=== PATIENT | male | born 1995 | race Two or more races ===

== ENCOUNTER 2019-11-07 18:35 | Emergency (ER) | payer OTHER ==
--- NOTE | 2019-11-07 18:43 | PDOC ---
Rapid Medical Evaluation Time Seen by Provider: 11/07/19 18:37 Medical Evaluation: 11/07/19 18:37 HPI: 24 year old male no pmhx presenting with nasal congestion chills with loss of taste of smell PE: tachycardia CTA A/P: tachcardia to 140's O2 sat 100 Basic labs Fluids Chest XR EKG Pt to precede to ED for further evaluation and treatment.
[2019-11-07] MEDS ORDERED: ACETAMINOPHEN 500 MG TABLET (FP) PO ONE (18:44)
[2019-11-07] MEDS ORDERED: SODIUM CHLORIDE 0.9% 500 ML INFUS.BAG IV ONE (18:44)
[2019-11-07 19:07] VITALS: TEMP 99.4; BMI 27.5
--- NOTE | 2019-11-07 20:00 | PDOC ---
History of Present Illness - General Chief Complaint: Cold Symptoms Stated Complaint: COUGH/CONGESTION Time Seen by Provider: 11/07/19 18:37 History Source: Patient Exam Limitations: No Limitations - History of Present Illness Initial Comments: 11/07/19 20:00 24y previously healthy M presenting w 1d nasal congestion, SOB, non productive cough. Took tylenol this morning w/o relief. Denies recent covid exposure. Denies fever, n/v, chest, ABD pain, urinary/bowel mvmt changes. Past History - Medical History Allergies/Adverse Reactions: Allergies Allergy/AdvReac Type Severity Reaction Status Date / Time No Known Allergies Allergy Verified 11/07/19 18:39 COPD: No - Immunization History Immunization Up to Date: No - Psycho-Social/Smoking History Smoking History: Former smoker Have you smoked in the past 12 months: No Information on smoking cessation initiated: No - Substance Abuse Hx (Audit-C & DAST Scrn) How often the patient has a drink containing alcohol: Never Score: In Men: 4 or > Positive; In Women: 3 or > Positive: 0 Screen Result (Pos requires Nsg. Audit-10AR): Negative In the last yr the pt used illegal drug/Rx for NonMed reason: No Score: Yes response is considered Positive: 0 Screen Result (Positive result requires Nsg. DAST-10): Negative Review of Systems - Review of Systems Constitutional: No: Chills, Fever HEENTM: Yes: Nose Congestion. No: Eye Pain Respiratory: Yes: Cough, Shortness of Breath Cardiac (ROS): No: Chest Pain, Palpitations ABD/GI: No: Constipated, Diarrhea, Nausea, Vomiting : No: Burning, Dysuria Musculoskeletal: No: Back Pain, Joint Pain Integumentary: No: Bruising, Flushing Neurological: No: Headache, Seizure Psychiatric: No: Anxiety, Depression Endocrine: No: Intolerance to Cold, Intolerance to Heat Hematologic/Lymphatic: No: Anemia, Blood Clots *Physical Exam - Vital Signs Last Vital Signs Temp Pulse Resp BP Pulse Ox 99.4 F 140 H 20 159/110 H 100 11/07/19 18:40 11/07/19 18:40 11/07/19 18:40 11/07/19 18:40 11/07/19 18:40 - Physical Exam General Appearance: Yes: Nourished, Appropriately Dressed, Mild Distress HEENT: positive: EOMI, SHOAIB, Normal Voice, Nasal Congestion, Hearing Grossly Normal. negative: Scleral Icterus (R), Scleral Icterus (L) Respiratory/Chest: positive: Lungs Clear, Normal Breath Sounds. negative: Chest Tender, Respiratory Distress Cardiovascular: positive: Regular Rhythm, S1, S2, Tachycardia. negative: Murmur Gastrointestinal/Abdominal: positive: Normal Bowel Sounds, Flat, Soft. negative: Tender, Organomegaly Extremity: positive: Delayed Capillary Refill Integumentary: positive: Normal Color, Dry, Warm Neurologic: positive: Fully Oriented, Alert, Normal Mood/Affect, Normal Response, Responsive ED Treatment Course - LABORATORY CBC & Chemistry Diagram: 11/07/19 21:30 11/07/19 21:30 Medical Decision Making - Medical Decision Making 11/07/19 20:24 EKG - sinus tachycardia, HR 113, QTc 441, no ST changes CXR - fiona fluffy hilar infiltrates --- 24y previously healthy M presenting w 1d nasal congestion, SOB, non productive cough. Tachycardic 140 on admission Likely covid (infiltrates XR) vs PE vs hyperthyroid Given 1L NS, tylenol, sudafed Anticipate DC home Signed out to night team - consider d-dimer if pt persistently tachycardic after fluids given Discharge - Discharge Information Problems reviewed: Yes Clinical Impression/Diagnosis: Suspected 2019 novel coronavirus infection Condition: Improved Disposition: HOME - Follow up/Referral - Patient Discharge Instructions Patient Printed Discharge Instructions: [facility]-Coronavirus Instructions, [facility]- [facility] COVID-19 Isolation Protocol Additional Instructions: You may have the coronavirus infection Please self quarantine for the next 14 days You will be contacted with the results of your covid test in the next few days Drink lots of water Come back to the ED if you cannot breathe, persistent diarrhea, or severe chest pain --- Puede tener la infeccin por coronavirus Pngase en cuarentena john los prximos 14 heck Ser contactado con los resultados de de león prueba de covid en los prximos heck [place] Regrese al servicio de urgencias si no puede respirar, si tiene diarrea persistente o dolor de pecho intenso - Post Discharge Activity
[2019-11-07] MEDS ORDERED: PSEUDOEPHEDRINE HCL 30 MG TABLET PO ONE (20:21)
[2019-11-07] MEDS ORDERED: ACETAMINOPHEN 325 MG TABLET (FP) ONE (20:42)
[2019-11-07] MEDS ORDERED: PSEUDOEPHEDRINE HCL 60 MG TABLET ONE (20:43)
--- NOTE | 2019-11-07 20:44 | PDOC ---
Documentation entered by Kimberly Mares SCRIBE, acting as scribe for Emily De MD. Emily De MD: This documentation has been prepared by the Suzan márquez Xhesika, SCRIBE, under my direction and personally reviewed by me in its entirety. I confirm that the documentation accurately reflects all work, treatment, procedures, and medical decision making performed by me. Attending Attestation - Resident Resident Name: Justin Blankenship - ED Attending Attestation I have performed the following: I have examined & evaluated the patient, The case was reviewed & discussed with the resident, I agree w/resident's findings & plan, Exceptions are as noted - HPI HPI: 11/07/19 20:03 The patient is a 23y/o M with no pmh who presents to the ED with nasal congestion, nonproductive cough, and SOB x1day. Pt states he took Tylenol this morning with no improvement of symptoms. Pt denies any recent COVID exposures. The patient denies chest pain, headache and dizziness. Denies fever, nausea, vomiting, diarrhea and constipation. Denies dysuria, frequency, urgency and hematuria. Allergies: NKDA - Physicial Exam PE: 11/07/19 20:30 GENERAL: tired but nontoxic-appearing young adult male, A/Ox4, no distress, answers questions appropriately HEENT: PERRLA, EOMI, a bit dry mucous membranes NECK/BACK: no midline ttp, no spinal step-off or deformity, no hematoma, full ROM, neck supple CARDIOVASCULAR: apid regular rate, no MGR, strong peripheral pulses, capillary refill <2 seconds, extremities wwp, no edema LUNGS/RESPIRATORY: no respiratory distress, CTAB GI/ABDOMEN: symmetric [id number], normoactive BS, soft, no ttp, no midline pulsatile masses : no CVA tenderness MSK/EXTREMITIES: no muscle atrophy, no acute deformity SKIN: warm and dry, no pallor, no jaundice, no rash, no pathologic-appearing bruising, no skin breakdown, no cuts, no lesions NEUROLOGICAL: GCS 15, CN II-XII grossly intact, 5/5 strength proximally and distally, no facial droop - Medical Decision Making 11/07/19 20:31 Patient presents with fever, SOB, cough, c/f COVID-19 in the setting of COVID-19 pandemic. Initial Vital Signs Temp Pulse Resp BP Pulse Ox 99.4 F 140 H 20 159/110 H 100 11/07/19 18:40 11/07/19 18:40 11/07/19 18:40 11/07/19 18:40 11/07/19 18:40 DDX IBNLT: likely COVID-19 with c/f sequelae (ARDS, myocarditis). Superimposed bacterial PNA considered as well. Less likely influenza, bronchitis, other viral URI, laryngitis, tracheitis, etc. Initially patient is tachycardic and with mildly elevated oral temp, no desaturations, so unlikely PE but will check rectal temp and fluid resuscitate and give Tylenol and re-assess VS. Provider Orders Category Date Time Status ELECTROCARDIOGRAM [CARD] Stat Cardiology 11/07/19 18:43 Ordered EKG needed NOW Care 11/07/19 18:44 Completed Isolation Precautions As directed Care 11/07/19 18:44 Active CBC WITH DIFFERENTIAL Stat Lab 11/07/19 21:30 Completed COMP METABOLIC PANEL Stat Lab 11/07/19 21:30 Completed COVID-19 Stat Lab 11/07/19 21:30 Received PT/INR (PROTHROMBIN TIME) Stat Lab 11/07/19 21:30 Completed THYROID STIMULATING HORMONE Stat Lab 11/07/19 21:30 Completed Acetaminophen [Tylenol -] Medication 11/07/19 20:42 Discontinued 975 mg .ROUTE .STK-MED ONE Acetaminophen [Tylenol -] Medication 11/07/19 18:44 Discontinued 975 mg PO ONCE ONE Pseudoephedrine HCl [Sudafed -] Medication 11/07/19 20:21 Discontinued 30 mg PO ONCE ONE Pseudoephedrine HCl [Sudafed -] Medication 11/07/19 20:43 Discontinued 60 mg .ROUTE .STK-MED ONE Sodium Chloride [Normal Saline -] Medication 11/07/19 18:44 Discontinued 1,000 ml IV ONCE ONE Sodium Chloride [Normal Saline -] 1,000 ml Medication 11/07/19 22:30 Discontinued IV ASDIR IV Insert NOW Phy Order 11/07/19 18:44 Active CHEST X-RAY PORTABLE* [RAD] Stat Radiology 11/07/19 20:00 Taken Medications Discontinued Medications Generic Name Dose Route Start Last Admin Trade Name Freq PRN Reason Stop Dose Admin Acetaminophen 975 mg 11/07/19 18:44 11/07/19 20:30 Tylenol - PO 11/07/19 18:45 975 mg ONCE ONE Administration Acetaminophen Confirm 11/07/19 20:42 Tylenol - Administered 11/07/19 20:43 Dose 975 mg .ROUTE .STK-MED ONE Sodium Chloride 1,000 mls @ 1,000 mls/hr 11/07/19 22:30 11/07/19 23:27 Normal Saline - IV 11/07/19 23:29 1,000 mls/hr ASDIR STA Administration Pseudoephedrine HCl 30 mg 11/07/19 20:21 11/07/19 20:45 Sudafed - PO 11/07/19 20:22 30 mg ONCE ONE Administration Pseudoephedrine HCl Confirm 11/07/19 20:43 Sudafed - Administered 11/07/19 20:44 Dose 60 mg .ROUTE .STK-MED ONE Sodium Chloride 1,000 ml 11/07/19 18:44 11/07/19 20:30 Normal Saline - IV 11/07/19 18:45 1,000 ml ONCE ONE Administration Lab Results WBC 6.6 K/mm3 (4.0-10.0) 11/07/19 21:30 RBC 6.84 M/mm3 (4.00-5.60) H 11/07/19 21:30 Hgb 17.5 GM/dL (11.7-16.9) H 11/07/19 21:30 Hct 54.2 % (35.4-49) H 11/07/19 21:30 MCV 79.3 fl (80-96) L 11/07/19 21:30 MCH 25.6 pg (25.7-33.7) L 11/07/19 21:30 MCHC 32.3 g/dl (32.0-35.9) 11/07/19 21:30 RDW 13.6 % (11.9-15.9) 11/07/19 21:30 Plt Count 277 K/MM3 (134-434) 11/07/19 21:30 MPV 9.7 fl (7.5-11.1) 11/07/19 21:30 Absolute Neuts (auto) 4.3 K/mm3 (1.5-8.0) 11/07/19 21:30 Neutrophils % 65.4 % (42.8-82.8) 11/07/19 21: Lymphocytes % 18.4 % (8-40) 11/07/19: Monocytes % 14.3 % (3.8-10.2) H 11/07/19 21: Eosinophils % 1.4 % (0-4.5) 11/07/19: Basophils % 0.5 % (0-2.0) 11/07/19: Nucleated RBC % 0 % (0-0) 11/07/19: Platelet Estimate Normal 11/07/19: Platelet Comment Present 11/07/19: PT with INR 13.60 SEC (9.7-13.0) H 11/07/19: INR 1.15 (0.83-1.09) H 11/07/19 21:30 Sodium 140 mmol/L (136-145) 11/07/19: Potassium 3.7 mmol/L (3.5-5.1) 11/07/19: Chloride 104 mmol/L (98-107) 11/07/19: Carbon Dioxide 25 mmol/L (21-32) 11/07/19:30 Anion Gap 10 MMOL/L (8-16) 11/07/19: BUN 12.3 mg/dL (7-18) 11/07/19 21: Creatinine 1.2 mg/dL (0.55-1.3) 11/07/19:30 Est GFR (CKD-EPI)AfAm 98.89 11/07/19: Est GFR (CKD-EPI)NonAf 85.32 11/07/19 21:30 Random Glucose 118 mg/dL (74-106) H 11/07/19 21:30 Calcium 9.4 mg/dL (8.5-10.1) 11/07/19 21:30 Total Bilirubin 0.4 mg/dL (0.2-1) 11/07/19 21:30 AST 23 U/L (15-37) 11/07/19 21:30 ALT 31 U/L (13-61) 11/07/19: Alkaline Phosphatase 88 U/L (45-117) 08/25/20 21:30 Total Protein 8.5 g/dl (6.4-8.2) H 11/07/19 21:30 Albumin 4.3 g/dl (3.4-5.0) 11/07/19 21:30 TSH 1.11 uIU/ml (0.358-3.74) 11/07/19 21:30 CXR: Diffuse bilateral patchy consolidations without focal or lobar consolidation. 11/07/19 21:01 At this time patient's HR is 100. 11/08/19 00:10 Patient's repeat HR after 2nd liter IVF is 104. He states he is anxious and does not like hospitals. No SOB, no chest pain This Pt has gotten significant relief of symptoms while in the ED. The patient has no new hypoxia, significant respiratory distress, or other sxs requiring admission. On last reassessment, vitals are wnl and exam is benign. Workup is not concerning for emergency-level pathology at this time. This Pt is appropriate for discharge with close outpatient follow up. They are comfortable with this plan and will call PCP within 2 days for follow-up conversation. They are instructed on importance of quarantine and further outpatient testing. Discharge instructions for COVID-19 patients and household members given. Specific return precautions are discussed and they will come back to the ER if necessary. Heart Score/ECG Review #1 11/07/19 20:34 Sinus tachycardia, rate 113, normal axis and intervals, no ischemic ST-T changes Discharge - Discharge Information Problems reviewed: Yes Clinical Impression/Diagnosis: Viral syndrome Condition: Improved Disposition: HOME - Admission No - Follow up/Referral - Patient Discharge Instructions Patient Printed Discharge Instructions: [facility]-Coronavirus Instructions, [facility]- [facility] COVID-19 Isolation Protocol Additional Instructions: You may have the coronavirus infection Please self quarantine for the next 14 days You will be contacted with the results of your covid test in the next few days Drink lots of water. Take tylenol 650mg every 6 hours as needed Come back to the ED if you cannot breathe, persistent diarrhea, or severe chest pain --- Puede tener la infeccin por coronavirus Pngase en cuarentena john los prximos 14 heck Ser contactado con los resultados de de león prueba de covid en los prximos heck [address] [place] tylenol. 650mg cada 6 horas si necesitas Regrese al servicio de urgencias si no puede respirar, si tiene diarrea persistente o dolor de pecho intenso Print Language: AMHARIC - Post Discharge Activity Work/Back to School Note: Back to Work
[2019-11-07 21:49] LABS: BASO % 0.5 % (0-2.0); EOS % 1.4 % (0-4.5); HEMATOCRIT 54.2 % (35.4-49); HEMOGLOBIN 17.5 GM/dL (11.7-16.9); LYMPH % 18.4 % (8-40); MCH 25.6 pg (25.7-33.7); MCHC 32.3 g/dl (32.0-35.9); MEAN CELL VOLUME 79.3 fl (80-96); MEAN PLT VOLUME 9.7 fl (7.5-11.1); MONO % 14.3 % (3.8-10.2); NEUT % 65.4 % (42.8-82.8); RBC 6.84 M/mm3 (4.00-5.60); RDW 13.6 % (11.9-15.9); WHITE BLOOD COUNT 6.6 K/mm3 (4.0-10.0)
[2019-11-07 21:56] LABS: INR 1.15 (0.83-1.09); PROTHROMBIN TIME (PATIENT) 13.6 SEC (9.7-13.0)
[2019-11-07 22:19] LABS: ALBUMIN 4.3 g/dl (3.4-5.0); BILIRUBIN,TOTAL 0.4 mg/dL (0.2-1); BLOOD UREA NITROGEN 12.3 mg/dL (7-18); CALCIUM 9.4 mg/dL (8.5-10.1); CREATININE 1.2 mg/dL (0.55-1.3); POTASSIUM 3.7 mmol/L (3.5-5.1); TOT PROT 8.5 g/dl (6.4-8.2)
[2019-11-07] MEDS ORDERED: SODIUM CHLORIDE 1,000 ML IV STA (22:30)
[2019-11-07 23:39] LABS: PLATELET ESTIMATE NORMAL
[2019-11-07 23:45] LABS: PLATELET COUNT 277 K/MM3 (134-434)
--- NOTE | 2019-11-07 23:52 | PDOC ---
*Physical Exam - Vital Signs Last Vital Signs Temp Pulse Resp BP Pulse Ox 99.4 F 140 H 20 159/110 H 100 11/07/19 18:40 11/07/19 18:40 11/07/19 18:40 11/07/19 18:40 11/07/19 18:40 ED Treatment Course - LABORATORY CBC & Chemistry Diagram: 11/07/19 21:30 11/07/19 21:30 - ADDITIONAL ORDERS Additional order review: Laboratory Results 11/07/19 11/07/19 21:30 21:30 PT with INR 13.60 H INR 1.15 H Sodium 140 Potassium 3.7 Chloride 104 Carbon Dioxide 25 Anion Gap 10 BUN 12.3 Creatinine 1.2 Est GFR (CKD-EPI)AfAm 98.89 Est GFR (CKD-EPI)NonAf 85.32 Random Glucose 118 H Calcium 9.4 Total Bilirubin 0.4 AST 23 ALT 31 Alkaline Phosphatase 88 Total Protein 8.5 H Albumin 4.3 TSH 1.11 11/07/19 21:30 RBC 6.84 H MCV 79.3 L MCHC 32.3 RDW 13.6 MPV 9.7 Neutrophils % 65.4 Lymphocytes % 18.4 Monocytes % 14.3 H Eosinophils % 1.4 Basophils % 0.5 - Medications Given in the ED: ED Medications Discontinued Medications Generic Name Dose Route Start Last Admin Trade Name Stephanie PRN Reason Stop Dose Admin Acetaminophen 975 mg 11/07/19 18:44 11/07/19 20:30 Tylenol - PO 11/07/19 18:45 975 mg ONCE ONE Administration Sodium Chloride 1,000 mls @ 1,000 mls/hr 11/07/19 22:30 11/07/19 23:27 Normal Saline - IV 11/07/19 23:29 1,000 mls/hr ASDIR STA Administration Pseudoephedrine HCl 30 mg 11/07/19 20:21 11/07/19 20:45 Sudafed - PO 11/07/19 20:22 30 mg ONCE ONE Administration Sodium Chloride 1,000 ml 11/07/19 18:44 11/07/19 20:30 Normal Saline - IV 11/07/19 18:45 1,000 ml ONCE ONE Administration Medical Decision Making - Medical Decision Making 11/07/19 23:[address] Blankenship 24y previously healthy M presenting w 1d nasal congestion, SOB, non productive cough. Tachycardic 140 on admission Likely covid (infiltrates XR) vs PE vs hyperthyroid Given 1L NS, tylenol, sudafed Signed out to reassess and monitor vitals 11/07/19 23:50 HR 104 following 2nd ivf bolus patient feels well and states he feels nervous. no chest pain, sob, palp. requesting to go home. shared decision making process. Will return to the ED if acute worsening of symptoms Discharge - Discharge Information Problems reviewed: Yes Clinical Impression/Diagnosis: Viral syndrome Condition: Improved Disposition: HOME - Follow up/Referral - Patient Discharge Instructions Patient Printed Discharge Instructions: [facility] [place], [facility] [place] COVID-19 Isolation Protocol Additional Instructions: You may have the coronavirus infection Please self quarantine for the next 14 days You will be contacted with the results of your covid test in the next few days Drink lots of water. Take tylenol 650mg every 6 hours as needed Come back to the ED if you cannot breathe, persistent diarrhea, or severe chest pain --- Puede tener la infeccin por coronavirus Pngase en cuarentena john los prximos 14 heck Ser contactado con los resultados de de león prueba de covid en los prximos heck [address] [place] tylenol. 650mg cada 6 horas si necesitas Regrese al servicio de urgencias si no puede respirar, si tiene diarrea persiste nte o dolor de pecho intenso Print Language: AZERI - Post Discharge Activity
[2019-11-08 02:35] VITALS: BP 124/72; PULSE 94
--- NOTE | 2019-11-08 10:05 | EKG ---
Test Reason : Blood Pressure : / mmHG Vent. Rate : 113 BPM Atrial Rate : 113 BPM P-R Int : 136 ms QRS Dur : 074 ms QT Int : 322 ms P-R-T Axes : 060 049 058 degrees QTc Int : 441 ms SINUS TACHYCARDIA POSSIBLE LEFT ATRIAL ENLARGEMENT BORDERLINE ECG NO PREVIOUS ECGS AVAILABLE Confirmed by MD Papo, Андрей ([id number]) on 11/08/2019 10:04:39 AM Referred By: Confirmed By:Андрей Barros MD
== END 2019-11-08 | disposition home or self-care (01) ==
LOC: JER 18:35
PROC: 3E0337Z Introduction of Electrolytic and Water Balance Substance into Peripheral Vein, Percutaneous Approach (ICD-10-PCS; principal; 2019-11-07)
DX: J06.9 Acute upper respiratory infection, unspecified (principal)
CPT/HCPCS: 36415; 71045-TC-FY; 80053; 84443; 85025; 85610; 93005; 93010; 99285-25; U0003

== ENCOUNTER 2020-06-10 12:20 | Emergency (ER) | payer OTHER ==
[2020-06-10 12:39] VITALS: BP 144/87; PULSE 98; TEMP 99.5; BMI 26.9
== END 2020-06-10 14:51 | disposition home or self-care (01) ==
LOC: JERFT 12:20
DX: R21 Rash and other nonspecific skin eruption (principal); R07.0 Pain in throat
CPT/HCPCS: 99281-25

== ENCOUNTER 2024-06-16 10:44 | Emergency (ER) | payer OTHER ==
[2024-06-16 10:57] VITALS: RESP 18; TEMP 98.1; BMI 19.8
[2024-06-16 11:33] LABS: HEMOGLOBIN 14.1 g/dL (13.7-17.5); MCHC 30.7 g/dl (32.3-36.5); MEAN CELL VOLUME 76.9 fl (79.0-92.2); MEAN PLT VOLUME 9.4 fl (9.4-12.4); PLATELET COUNT 409 x10^3/uL (163-337); RDW 14.4 % (11.9-15.3)
[2024-06-16] MEDS: SODIUM CHLORIDE 1,000 ML IV STA (11:39)
[2024-06-16 11:45] LABS: ACTIVATED PTT 31.9 SECONDS (25.2-36.5)
[2024-06-16 11:47] LABS: INR 1.3 (0.83-1.09); PROTHROMBIN TIME (PATIENT) 14.2 SEC (9.7-13.0)
[2024-06-16 11:54] LABS: POTASSIUM 3.8 mmol/L (3.5-5.1)
[2024-06-16 11:58] LABS: ALBUMIN 3.4 g/dl (3.4-5.0); CALCIUM 9.3 mg/dL (8.5-10.1)
[2024-06-16 12:03] LABS: BILIRUBIN,TOTAL 0.4 mg/dL (0.2-1); TOT PROT 9.4 g/dl (6.4-8.2)
[2024-06-16 12:17] VITALS: BP 134/89; PULSE 106
[2024-06-16 14:05] LABS: URINE APPEARANCE CLEAR; URINE BILIRUBIN NEGATIVE (NEGATIVE); URINE COLOR YELLOW; URINE GLUCOSE (UA) NEGATIVE (NEGATIVE); URINE KETONE 1+ (NEGATIVE); URINE LEUK ESTERASE NEGATIVE (NEGATIVE); URINE NITRITE NEGATIVE (NEGATIVE); URINE PROTEIN NEGATIVE (NEGATIVE); URINE UROBILINOGEN 0.2 mg/dL (0.2-1.0)
== END 2024-06-16 15:01 | disposition home or self-care (01) ==
LOC: JER 10:44
PROC: 3E0337Z Introduction of Electrolytic and Water Balance Substance into Peripheral Vein, Percutaneous Approach (ICD-10-PCS; principal; 2024-06-16)
DX: J18.9 Pneumonia, unspecified organism (principal); R00.0 Tachycardia, unspecified; R91.8 Other nonspecific abnormal finding of lung field
CPT/HCPCS: 0241U-QW; 36415; 71045-TC-FY; 71275-TC; 80053; 81003; 82550; 83735; 84443; 84484; 85027; 85379; 85610; 85730; 87086; 93005; 93010; 99285-25; Q9967

== ENCOUNTER 2024-08-18 17:39 | Inpatient (IN) | payer OTHER ==
[2024-08-18 19:43] LABS: ABSOLUTE IMMATURE GRANULOCYTES 0.05 x10^3/uL (0.0-0.031); BASOPHILS # 0.03 x10^3/uL (0.01-0.08); EOSINOPHIL % 1.5 % (0.8-7.0); EOSINOPHILS # 0.13 x10^3/uL (0.04-0.54); HEMATOCRIT 38.7 % (40.1-51.0); HEMOGLOBIN 12.1 g/dL (13.7-17.5); MCHC 31.3 g/dl (32.3-36.5); MEAN CELL VOLUME 72.2 fl (79.0-92.2); MEAN PLT VOLUME 9.4 fl (9.4-12.4); MONOCYTE # 1.44 x10^3/uL (0.30-0.82); MONOCYTE % 16.6 % (5.3-12.2); PLATELET COUNT 458 x10^3/uL (163-337); RDW 15.8 % (11.9-15.3)
[2024-08-18 19:57] LABS: INR 1.6 (0.83-1.09); PROTHROMBIN TIME (PATIENT) 17.6 SEC (9.7-13.0)
[2024-08-18 19:59] LABS: ACTIVATED PTT 30.8 SECONDS (25.2-36.5)
[2024-08-18 20:14] LABS: POTASSIUM 3.7 mmol/L (3.5-5.1)
[2024-08-18 20:16] LABS: ALBUMIN 2.7 g/dl (3.4-5.0); BLOOD UREA NITROGEN 6.8 mg/dL (7-18); CALCIUM 9.3 mg/dL (8.5-10.1)
[2024-08-18 20:19] LABS: CREATININE 0.7 mg/dL (0.55-1.3)
[2024-08-18 20:21] LABS: BILIRUBIN,TOTAL 0.3 mg/dL (0.2-1); TOT PROT 8.3 g/dl (6.4-8.2)
[2024-08-18 20:34] VITALS: RESP 18
[2024-08-19] MEDS: SODIUM CHLORIDE 1,000 ML IV SCH (01:50)
[2024-08-19 02:39] VITALS: BMI 19.1
[2024-08-19 07:22] LABS: Reticulocyte % 0.83 % (0.51-1.81)
[2024-08-19 07:23] LABS: ABSOLUTE IMMATURE GRANULOCYTES 0.03 x10^3/uL (0.0-0.031); BASOPHILS # 0.03 x10^3/uL (0.01-0.08); EOSINOPHIL % 3.2 % (0.8-7.0); EOSINOPHILS # 0.25 x10^3/uL (0.04-0.54); HEMATOCRIT 40.8 % (40.1-51.0); HEMOGLOBIN 12.7 g/dL (13.7-17.5); MCHC 31.1 g/dl (32.3-36.5); MEAN CELL VOLUME 72.1 fl (79.0-92.2); MEAN PLT VOLUME 9.4 fl (9.4-12.4); MONOCYTE # 1.29 x10^3/uL (0.30-0.82); MONOCYTE % 16.6 % (5.3-12.2); PLATELET COUNT 484 x10^3/uL (163-337); RDW 15.7 % (11.9-15.3)
[2024-08-19 07:38] LABS: POTASSIUM 3.8 mmol/L (3.5-5.1)
[2024-08-19 07:40] LABS: MAGNESIUM 2.1 mg/dL (1.8-2.4)
[2024-08-19 07:41] LABS: ALBUMIN 2.6 g/dl (3.4-5.0); CALCIUM 9.3 mg/dL (8.5-10.1)
[2024-08-19 07:42] LABS: BLOOD UREA NITROGEN 6.7 mg/dL (7-18)
[2024-08-19 07:43] LABS: CREATININE 0.8 mg/dL (0.55-1.3)
[2024-08-19 07:46] LABS: BILIRUBIN,TOTAL 0.5 mg/dL (0.2-1); TOT PROT 8.2 g/dl (6.4-8.2)
[2024-08-19] MEDS: CHOLECALCIFEROL (VIT D3) 400 UNIT (10 MCG) TABLET PO SCH (10:32)
[2024-08-19] MEDS: BICTEGRAV/EMTRICIT/TENOFOV (BIKTARVY) 50-200-25 MG TABLET PO SCH (10:32)
[2024-08-19] MEDS: AZITHROMYCIN 250 MG TABLET PO SCH (10:32)
[2024-08-19] MEDS: SULFAMETHOXAZOLE/TRIMETHOPRIM 800MG/160MG D.S. TABLET PO SCH (10:32)
[2024-08-19] MEDS: ENOXAPARIN NA (PORCINE) 40 MG/0.4 ML DISP.SYRIN SQ SCH (10:33)
[2024-08-19] MEDS: ETHAMBUTOL HCL 400 MG TABLET PO SCH (10:33)
[2024-08-19] MEDS: MULTIVITAMINS (DAILY MVI) TABLET (FP) PO SCH (10:33)
[2024-08-19 18:03] VITALS: BP 119/79; PULSE 86; TEMP 97.7
== END 2024-08-19 19:45 | disposition short-term general hospital (02) | DRG 892 ==
LOC: JER 17:39 → JERBED 20:27 → J4S 08-19 01:18
PROVIDERS: ADMIT Internal Medicine; ATTEND Internal Medicine
DX: A31.0 Pulmonary mycobacterial infection (principal); B20 Human immunodeficiency virus [HIV] disease; D50.9 Iron deficiency anemia, unspecified; E05.90 Thyrotoxicosis, unspecified without thyrotoxic crisis or storm; R00.0 Tachycardia, unspecified; J90 Pleural effusion, not elsewhere classified; R91.8 Other nonspecific abnormal finding of lung field; Z72.0 Tobacco use
CPT/HCPCS: 36415; 71046-TC-FY; 71250-TC; 76536-TC; 80053; 82728; 83540; 83550; 83735; 84100; 85025; 85610; 85730; 86850; 86900; 86901; 87040; 93005; 93010; 99285-25